=== PATIENT | female | born 1985 | race Caucasian/White ===

== ENCOUNTER 2016-08-31 06:46 | Inpatient (IN) | payer OTHER ==
[2016-08-31] MEDS ORDERED: CARBOPROST TROMETHAMINE 250 MCG/ML 1 ML AMP IM PRN (07:26)
[2016-08-31] MEDS ORDERED: METHYLERGONOVINE 0.2 MG/ML 1 ML AMP IM PRN (07:26)
[2016-08-31] MEDS ORDERED: OXYTOCIN 10 UNIT/ML 1 ML VIAL IM PRN (07:26)
[2016-08-31] MEDS ORDERED: LIDOCAINE 1% (PF) 10 MG/ML (30 ML SDV) SQ PRN (07:26)
[2016-08-31] MEDS ORDERED: TERBUTALINE 1 MG/ML VIAL SQ PRN (07:26)
[2016-08-31] MEDS: LACTATED RINGERS 1,000 ML IV SCH ×5 (08:05→23:14)
[2016-08-31] MEDS ORDERED: fentaNYL (PF) 50 MCG/ML 5 ML AMP ONE (08:35)
[2016-08-31] MEDS ORDERED: BUPIVACAINE (PF) 0.25% 30 ML VIAL ONE (08:35)
[2016-08-31] MEDS ORDERED: SODIUM CHLORIDE 0.9% 100 ML BAG ONE (08:35)
[2016-08-31 08:42] LABS: Anisocytosis Moderate; Basophils % (A) 0 %; CH 26.1; Eosinophils # (A) 0.1 k/uL (0-0.7); Eosinophils % (A) 1 %; HDW 3.15; Hypochromasia Slight; Luc # (Auto) 0.26; Luc % (Auto) 3; Lymphocytes # (A) 1.6 k/uL (1.0-4.8); Lymphocytes % (A) 16 %; MCH 27.3 pg (25.0-35.0); MCHC 33.4 g/dL (31.0-37.0); MCV 81.8 fL (80.0-100.0); Mean Platelet Volume 8.7; Microcytosis Moderate; Monocytes # (A) 0.5 k/uL (0-1.0); Monocytes % (A) 5 %; Neutrophils # (A) 7.4 k/uL (1.3-7.7); Neutrophils % (A) 75 %; RBC 4.77 m/uL (3.80-5.40); RDW 22.5 % (11.5-15.5); WBC 9.9 k/uL (3.8-10.6); WBC (Perox) 10.37
[2016-08-31] MEDS ORDERED: ePHEDrine 50 MG/ML 1 ML AMP ONE (09:18)
[2016-08-31] MEDS ORDERED: MORPHINE SULFATE (PF) 0.3 MG/0.3 ML SYR ONE (09:18)
[2016-08-31] MEDS ORDERED: MIDAZOLAM 2 MG/2 ML VIAL ONE (09:18)
[2016-08-31] MEDS ORDERED: NALBUPHINE 10 MG/ML AMPUL ONE (09:18)
[2016-08-31] MEDS ORDERED: ONDANSETRON 4 MG/2 ML VIAL ONE (09:18)
[2016-08-31] MEDS ORDERED: fentaNYL (PF) 50 MCG/ML 2 ML AMP ONE (09:18)
[2016-08-31] MEDS ORDERED: PROPOFOL 10 MG/ML 20 ML VIAL IV ONE (09:18)
[2016-08-31] MEDS ORDERED: KETOROLAC 30 MG/ML 1 ML VIAL ONE (09:18)
[2016-08-31] MEDS ORDERED: SUCCINYLCHOLINE CHLORIDE 100 MG/5 ML SYR IV ONE (09:18)
--- NOTE | 2016-08-31 10:10 | P.OP ---
Date of Procedure: 08/31/16 Preoperative Diagnosis: Intrauterine at 40-1/7 days nonreassuring heart tones, Postoperative Diagnosis: Same Procedure(s) Performed: Primary low transverse section Implants: Anesthesia: LEIDAA Surgeon: Yelena Thompson Sodium Chlorite Operator #1: Ravinder Clancy Estimated Blood Loss (ml): 350 IV fluids (ml): 800 Urine output (ml): 50 Condition: stable Disposition: PACU Indications for Procedure: Nonreassuring heart tones Operative Findings: Normal uterus tubes and ovaries were appreciated Description of Procedure: This is a 30-year-old 1 para 0 that presented to labor and delivery with complaints of contractions and bloody show initial exam she was 4 cm dilated epidural was requested. She was then comfortable with epidural I entered the labor suite heart tones were reassuring in nature spontaneous D cell down to the 60s was noted scalp electrode was placed without difficulty. heart tones remained down therefore the decision was made to take for a primary low transverse section secondary to nonreassuring heart tones. The patient was taken to the operating room and general anesthesia was obtained without difficulty by the anesthesia department she was then prepped and draped in the normal sterile fashion in the dorsal supine position. A Pfannenstiel skin incision was made after a Wright catheter was placed without difficulty, and carried through the underlying layer of fascia. The fascia was then incised in the midline and extended laterally bluntly, the superior aspect of the fascial incision was grasped gayle clamps, elevated and underlying rectus muscles dissected off sharply. The inferior aspect of the fascial incision was then grasped with Gayle clamps, elevated and the rectus muscles dissected off sharply once again. The peritoneum was identified and entered bluntly. The bladder blade was inserted and a hysterotomy incision was made and the was delivered atraumatically. She was then handed off to awaiting pediatricians once the cord was doubly clamped and cut. A section of cord was then sent for cord gases. The hysterotomy incision was then inspected and closed with 0 Vicryl in a running locked fashion, hemostasis was noted. the pelvis was then suction irrigated. The Uterus Was Then Delivered Back into the Abdomen and the Hysterotomy Was Inspected Once Again. Bleeding Was Noted on the Left-Hand Side of the Uterine Incision a Fkyete-Uo-Fssfn Suture of 0 Vicryl Was Used To Obtain Hemostasis. The Gutters Were Then Cleared of All Clots and Debris. Inspection of the Hysterotomy Site Revealed Hemostasis Once Again. The Fascia Was Then Closed with 0 Vicryl in a Running Fashion from One Lateral Edge to the other Lateral Edge. The Subcutaneous Tissue Was Then Irrigated Hemostasis Was Noted and the Skin Was Closed with 4-0 Vicryl in a Subcuticular Fashion. All Counts Are Correct 2 Patient Tolerated Procedure Well and Was Taken to the Recovery Room in Stable Condition.
[2016-08-31] MEDS ORDERED: diphenhydrAMINE 25 MG CAP PO PRN (10:13)
[2016-08-31] MEDS ORDERED: ONDANSETRON 4 MG/2 ML VIAL IVP PRN (10:13)
[2016-08-31] MEDS ORDERED: NALOXONE 0.4 MG/ML 1 ML VIAL IV PRN (10:13)
[2016-08-31] MEDS ORDERED: ZOLPIDEM 5 MG TAB PO PRN (10:13)
[2016-08-31] MEDS ORDERED: METOCLOPRAMIDE 5 MG/ML 2 ML VIAL IVP PRN (10:13)
[2016-08-31] MEDS ORDERED: diphenhydrAMINE 50 MG CAP PO PRN (10:13)
[2016-08-31] MEDS ORDERED: diphenhydrAMINE 50 MG/ML 1 ML VIAL IVP PRN ×2 (10:13)
[2016-08-31] MEDS ORDERED: ACETAMINOPHEN TAB 325 MG TAB PO PRN (10:13)
[2016-08-31] MEDS ORDERED: ACETAMINOPHEN IV (For NPO) 1,000 MG in EMPTY BAG 1 BAG IVPB ONE (10:13)
--- NOTE | 2016-08-31 10:13 | P.HPOB ---
History of Present Illness H&P Date: 08/31/16 Chief Complaint: contractions, labor this is a 30yo that presents to labor and delivery with c/o ctx since early this am that woke her from sleep. seh notes contractions q 2-3 mins with some bloody show. she denies any LOF notes good FM. Initial vitals on this patient were stable she was afebrile heart tones were 120s and reactive contractions were noted every 3 minutes approximately. She was 4 cm 80% dilated at a -2 station on admission Past Medical History Past Medical History: No Reported History History of Any Multi-Drug Resistant Organisms: None Reported Additional Past Surgical History / Comment(s): [place] teeth removal Past Anesthesia/Blood Transfusion Reactions: No Reported Reaction Past Psychological History: No Psychological Hx Reported Smoking Status: Never smoker Past Alcohol Use History: None Reported Past Drug Use History: None Reported - Past Family History Mother Family Medical History: Hypertension Medications and Allergies Home Medications Medication Instructions Recorded Confirmed Type Iron 1 tab PO DAILY 08/31/16 08/31/16 History Pnv,Calcium 72/Iron/Folic Acid 1 tab PO DAILY 08/31/16 08/31/16 History [ Plus Tablet] Allergies Allergy/AdvReac Type Severity Reaction Status Date / Time No Known Allergies Allergy Verified 08/31/16 07:04 Exam Osteopathic Statement: *. No significant issues noted on an osteopathic structural exam other than those noted in the History and Physical/Consult. - Vital Signs Vital signs: Intake and Output 08/30/16 08/31/16 08/31/16 22:59 06:59 14:59 Intake Total 1000 Balance 1000 Intake: IV 1000 Lactated Ringers 1,000 ml 1000 @ 125 mls/hr IV .Q8H [facility] Rx#:[id number] Other: Weight 67.132 kg Patient Weight 09/01/16 06:59 Weight 67.132 kg - OBG Physical Exam Abdomen: Gravid and appropriate for gestational age Results Result Diagrams: 08/31/16 08:05 Abnormal Lab Results - Last 24 Hours (Table) 08/31/16 Range/Units 08:05 RDW 22.5 H (11.5-15.5) % Assessment and Plan (1) Active labor at term Status: Acute Plan: She was admitted to labor and delivery with expectant management anticipate spontaneous vaginal delivery
[2016-08-31] MEDS ORDERED: OXYTOCIN 20 UNITS/1000 ML NS 1,000 ML IV SCH (10:15)
[2016-08-31] MEDS: KETOROLAC 30 MG/ML 1 ML VIAL IVP SCH (19:55)
[2016-08-31] MEDS: SENNOSIDES-DOCUSATE SODIUM 1 EACH TAB PO SCH (19:56)
[2016-08-31] MEDS: ceFAZolin 2 GM in SODIUM CHLORIDE 0.9% 100 ML IVPB SCH (22:52)
[2016-09-01] MEDS: KETOROLAC 30 MG/ML 1 ML VIAL IVP SCH ×2 (02:00→09:02)
[2016-09-01 05:57] LABS: Anisocytosis Moderate; Basophils % (A) 0 %; CH 26.1; CHCM 31.4; Eosinophils # (A) 0.1 k/uL (0-0.7); Eosinophils % (A) 0 %; HDW 2.88; Hypochromasia Slight; Luc # (Auto) 0.21; Luc % (Auto) 1; Lymphocytes # (A) 0.8 k/uL (1.0-4.8); Lymphocytes % (A) 6 %; MCH 26.5 pg (25.0-35.0); MCHC 31.8 g/dL (31.0-37.0); MCV 83.2 fL (80.0-100.0); Mean Platelet Volume 8.8; Microcytosis Slight; Monocytes # (A) 0.4 k/uL (0-1.0); Monocytes % (A) 3 %; Neutrophils # (A) 12.9 k/uL (1.3-7.7); Neutrophils % (A) 89 %; RBC 3.73 m/uL (3.80-5.40); RDW 22.7 % (11.5-15.5); WBC 14.5 k/uL (3.8-10.6); WBC (Perox) 14.95
[2016-09-01 06:07] LABS: HGB 9.9 gm/dL (11.4-16.0)
[2016-09-01] MEDS: ceFAZolin 2 GM in SODIUM CHLORIDE 0.9% 100 ML IVPB SCH (06:50)
[2016-09-01] MEDS: SENNOSIDES-DOCUSATE SODIUM 1 EACH TAB PO SCH ×2 (08:00→19:20)
--- NOTE | 2016-09-01 08:12 | P.PNOBGPC ---
Subjective - Subjective Principal diagnosis: Post operative day #1 from primary low transverse section Patient reports: Reports appetite normal, Reports voiding normally, Reports ambulating normally : doing well Objective - Vital Signs Latest vital signs: Vital Signs Temp Pulse Resp BP Pulse Ox 09/01/16 04:00 98.3 F 110 H 16 110/68 97 08/31/16 23:09 98.2 F 110 H 16 125/77 99 08/31/16 20:00 97.8 F 97 16 125/80 99 08/31/16 15:56 98.3 F 105 H 16 117/71 08/31/16 12:05 97.6 F 111 H 16 121/77 08/31/16 11:35 107 H 18 117/74 08/31/16 11:05 100 20 130/83 08/31/16 10:50 108 H 20 127/85 08/31/16 10:35 115 H 20 119/76 08/31/16 10:20 122 H 20 132/75 08/31/16 10:05 96.9 F L 110 H 20 134/68 Intake and Output 08/31/16 09/01/16 09/01/16 22:59 06:59 14:59 Intake Total 300 Output Total 900 Balance -900 300 Intake: IV 300 Lactated Ringers 1,000 ml 300 @ 125 mls/hr IV .Q8H [facility] Rx#:[id number] Output: Urine 900 Other: # Voids 1 - Exam Lungs: bilateral: normal Abdomen: Present: normal appearance Incision: Present: normal, dry Uterus: Present: firm - Labs Labs: Abnormal Lab Results - Last 24 Hours (Table) 08/31/16 09/01/16 Range/Units 08:05 05:42 WBC 14.5 H (3.8-10.6) k/uL RBC 3.73 L (3.80-5.40) m/uL Hgb 9.9 L D (11.4-16.0) gm/dL Hct 31.0 L (34.0-46.0) % RDW 22.5 H 22.7 H (11.5-15.5) % Neutrophils # 12.9 H (1.3-7.7) k/uL Lymphocytes # 0.8 L (1.0-4.8) k/uL Assessment and Plan (1) Active labor at term Narrative/Plan: Postop day 1 from a primary low transverse section secondary to nonreassuring heart tones Doing well Encourage ambulation today Current Visit: Yes Status: Acute Code(s): [id number] - SNOMED Code(s): 07769827
[2016-09-01] MEDS: Acetaminophen-Codeine 300-30mg TAB PO PRN ×2 (15:38→22:43)
[2016-09-01] MEDS: IBUPROFEN 600 MG TAB PO PRN (19:21)
[2016-09-02] MEDS: IBUPROFEN 600 MG TAB PO PRN ×3 (02:01→21:41)
[2016-09-02] MEDS: LACTATED RINGERS 1,000 ML IV SCH ×3 (06:13→06:14)
--- NOTE | 2016-09-02 08:35 | P.PNOBGPC ---
Subjective - Subjective Patient reports: Reports appetite normal, Reports voiding normally, Reports pain well controlled, Reports ambulating normally : doing well, in NICU (Currently receiving prophylactic antibiotics pending blood cultures.) Objective - Vital Signs Latest vital signs: Vital Signs Temp Pulse Resp BP Pulse Ox 09/01/16 23:24 97.6 F 108 H 16 130/79 99 09/01/16 15:47 98.4 F 112 H 18 128/63 97 - Exam Extremities: Present: normal, edema (Trace bilateral pedal edema) Abdomen: Present: normal appearance, soft. Absent: distention, tenderness Incision: Present: normal, dry, intact Uterus: Present: normal, firm (Urine fundus as tonic and appropriately tender just below the umbilicus.) Assessment and Plan (1) S/P section Narrative/Plan: Continue routine postoperative care. It is possible that the infant will be released to the floor this afternoon. The patient will then see ruby from the clinical practice consultant and possibly be discharged home tomorrow morning. Current Visit: Yes Status: Acute Code(s): Z98.891 - HISTORY OF UTERINE SCAR FROM PREVIOUS SURGERY SNOMED Code(s): 810041791
[2016-09-02] MEDS: Acetaminophen-Codeine 300-30mg TAB PO PRN ×3 (08:42→23:53)
[2016-09-02] MEDS: SENNOSIDES-DOCUSATE SODIUM 1 EACH TAB PO SCH ×2 (08:43→19:21)
[2016-09-03] MEDS: IBUPROFEN 600 MG TAB PO PRN (08:59)
[2016-09-03 09:25] VITALS: BP 117/73; PULSE 98; RESP 16; TEMP 98
--- NOTE | 2016-09-03 09:43 | P.DS ---
Providers Date of admission: 08/31/16 07:20 Expected date of discharge: 09/03/16 Attending physician: Domo Singh Primary care physician: Stated None - Discharge Diagnosis(es) (1) S/P section Current Visit: Yes Status: Acute Hospital Course: The patient is a 30-year-old 1 para 0 admitted at 40 and one sevenths weeks by good dating parameters. She is admitted in early labor with all signs reassuring upon admission. Her has been uncomplicated to this point though her cervix has been unfavorable. On admission, her cervix was found to be 4-5 cm dilated. She had an epidural catheter placed for analgesia and, shortly thereafter had a significant deceleration of the heart rate into the 40s to 60s which remained there for several minutes. As result, she was taken to the operating room for an urgent section. She was delivered by section of a viable 7 lbs. 2 oz. baby girl with Apgars of 6 at 1 minute, 8 at 5 minutes, and 9 at 10 minutes. The infant was taken to the special care nursery for prophylactic antibiotics for 48 hours after which time cultures were noted to be negative. The infant was then released to the room with her parents. The patient's postoperative course was unremarkable vital signs remaining stable and her temperature was afebrile throughout. She was deemed stable for discharge by post operative day #3 and was discharged home to follow-up in the office in 2 weeks for an incision check and 6 weeks routinely. Discharge instructions included calling for any significantly increased fever or abdominal pain, significantly increased bleeding or foul-smelling lochia, perineal complaints, breast complaints, incisional complaints, or anything else that concerned her. She was additionally instructed to have nothing in the vagina for at least 6 weeks time to include intercourse and to abstain from any heavy lifting over the same period of time. She is less instructed to do no driving until off of all pain medications or 2 weeks' time, whichever came first. She understood her instructions and agrees to follow up as noted above. Discharge medications included a prescription for Tylenol 3, 1-2 by mouth every 6 hours when necessary pain, #30 dispensed with no refills. She was otherwise to use [id number] analgesic pain medications as well and to continue vitamins as she has opted to breast-feed. Maternal blood type is Rh+ and rubella status is immune. Procedures: #1. Epidural analgesia #2. Urgent primary low transverse section Patient Condition at Discharge: Stable Plan - Discharge Summary New Discharge Prescriptions: No Action Pnv,Calcium 72/Iron/Folic Acid [ Plus Tablet] 1 tab PO DAILY Iron 1 tab PO DAILY Discharge Medication List Iron 1 tab PO DAILY 08/31/16 [History] Pnv,Calcium 72/Iron/Folic Acid [ Plus Tablet] 1 tab PO DAILY 08/31/16 [ History] Follow up Appointment(s)/Referral(s): Domo Singh MD [STAFF PHYSICIAN] - 2 Weeks Discharge Disposition: HOME SELF-CARE
== END 2016-09-03 13:30 | disposition home or self-care (01) | DRG 766 ==
LOC: FBPOP 06:46 → 4FBP 07:20
PROVIDERS: ADMIT Obstetrics & Gynecology Obstetrics; ATTEND Obstetrics & Gynecology
PROC: 00HU33Z Insertion of Infusion Device into Spinal Canal, Percutaneous Approach (ICD-10-PCS; 2016-08-31)
PROC: 3E0R3CZ (ICD-10-PCS; 2016-08-31)
PROC: 10D00Z1 Extraction of Products of Conception, Low, Open Approach (ICD-10-PCS; principal; 2016-08-31 09:26)
DX: O76 Abnormality in fetal heart rate and rhythm complicating labor and delivery (principal); Z37.0 Single live birth; Z3A.40 40 weeks gestation of pregnancy; Z79.899 Other long term (current) drug therapy
CPT/HCPCS: 59025; 85025; 88307; 99213

== ENCOUNTER → 2020-09-18 | Outpatient (CLI) | payer OTHER ==
--- NOTE | 2020-09-19 14:37 | USB ---
Reason for exam: clinical finding. Indicated problem(s): pain in the right breast. Physical Findings: Nurse Summary: prominent nodularities (nurse dw). US Breast RT Right complete breast ultrasound includes all four quadrants, the retroareolar region and axilla. Finding demonstrates a 0.3 x 0.2 x 0.2cm oval, cystic lesion at 1 o'clock and a 1.4 x 1.0 x 0.8cm lymph node at the axilla. These results were verbally communicated with the patient and result sheet given to the patient on 09/18/20. ASSESSMENT: Benign, BI-RAD 2 RECOMMENDATION: Routine screening mammogram of both breasts at age 36. Manage on a clinical basis with regard to pain, nipple discharge.
== END | disposition home or self-care (01) ==
LOC: RADUSWWP 14:54
PROVIDERS: ATTEND Obstetrics & Gynecology Obstetrics
DX: N64.4 Mastodynia (principal)

== ENCOUNTER → 2023-07-29 | Outpatient (CLI) | payer BC ==
--- NOTE | 2023-07-30 11:09 | USB ---
Patient History: Menarche at age 12. First Full-Term at age 30. Premenopausal. Risk Values: Liz 5 year model risk: 0.4%. NCI Lifetime model risk: 12.3%. Technique: Method: Targeted. Findings: The axilla of the right breast was scanned. No solid or cystic masses are identified. Normal lymph node is present. Overall Assessment: Benign, BI-RAD 2 Management: Clinical Management of the right breast. A clinical breast exam by your physician is recommended on an annual basis and results should be correlated with mammographic findings. This exam should not preclude additional follow-up of suspicious palpable abnormalities. Results were given to the patient verbally at the time of exam. Electronically signed and approved by: Ken Elizabeth D.O. Radiologis
--- NOTE | 2023-08-01 12:48 | MM ---
Reason for Exam: Screening (asymptomatic). Baseline mammogram. Patient History: Menarche at age 12. First Full-Term at age 30. Premenopausal. Last menstrual period: 07/29/2023 Risk Values: Liz 5 year model risk: 0.4%. NCI Lifetime model risk: 12.3%. Prior Study Comparison: Patient's first Mammogram. Tissue Density: The breasts are extremely dense, which lowers the sensitivity of mammography. Findings: Analyzed By CAD. Right breast: There is no suspicious group of microcalcifications or new suspicious mass. Left breast: There is no suspicious group of microcalcifications or new suspicious mass. Overall Assessment: Negative, BI-RAD 1 Management: Screening Mammogram of both breasts in [address] [facility] will attempt to contact patient to return for supplemental views and ultrasound if indicated. Patient should continue monthly self-breast exams. A clinical breast exam by your physician is recommended on an annual basis. This exam should not preclude additional follow-up of suspicious palpable abnormalities. Note on Liz scores and lifetime risk: 1. A Liz score greater than 3% is considered moderate risk. If this is the case, consider specialist referral to assess eligibility for a risk reducing agent. 2. If overall lifetime risk for the development of breast cancer is 20% or higher, the patient may qualify for future screening with alternating mammogram and breast MRI. Electronically signed and approved by: Andi Peterson DO
== END | disposition home or self-care (01) ==
LOC: RADMAMWWP 16:11
PROVIDERS: ATTEND Family Medicine
DX: Z12.31 Encounter for screening mammogram for malignant neoplasm of breast (principal); R59.0 Localized enlarged lymph nodes
CPT/HCPCS: 77063; 77067

== ENCOUNTER 2023-12-16 07:12 | Emergency (ER) | payer BC ==
[2023-12-16 07:19] VITALS: RESP 18
--- NOTE | 2023-12-16 07:34 | ED ---
Extremity Problem HPI - General Chief complaint: Extremity Injury, Upper Stated complaint: R hand pain Time Seen by Provider: 12/16/23 07:20 Source: patient, RN notes reviewed Mode of arrival: ambulatory Limitations: no limitations - History of Present Illness Initial comments: This is a 38-year-old female who presents to the emergency department for hand pain. States that she was getting dressed this morning and felt a sting on her right hand. When she looked at the hand she noticed bruising and swelling over this area. She did not see any bugs or insects on her hand. She also does not see any retained stingers. Denies pain or itching spreading elsewhere aside from the hand. Denies any chest pain or shortness of breath. MD Complaint: extremity pain, extremity swelling - Related Data Home Medications Medication Instructions Recorded Confirmed Iron 1 tab PO DAILY 08/31/16 08/31/16 Pnv,Calcium 72/Iron/Folic Acid 1 tab PO DAILY 08/31/16 08/31/16 [ Plus Tablet] Previous Rx's Medication Instructions Recorded predniSONE 50 mg PO DAILY 5 Days #5 tablet 04/11/22 Allergies Allergy/AdvReac Type Severity Reaction Status Date / Time No Known Allergies Allergy Verified 12/16/23 07:15 Review of Systems ROS Statement: Those systems with pertinent positive or pertinent negative responses have been documented in the HPI. ROS Other: All systems not noted in ROS Statement are negative. Past Medical History Past Medical History: No Reported History History of Any Multi-Drug Resistant Organisms: None Reported Past Surgical History: Section Additional Past Surgical History / Comment(s): [place] teeth removal Past Anesthesia/Blood Transfusion Reactions: No Reported Reaction Past Psychological History: No Psychological Hx Reported Smoking Status: Never smoker Past Alcohol Use History: None Reported Past Drug Use History: None Reported - Past Family History Mother Family Medical History: Hypertension General Exam Limitations: no limitations General appearance: alert, in no apparent distress Head exam: Present: atraumatic, normocephalic, normal inspection Respiratory exam: Present: normal lung sounds bilaterally. Absent: respiratory distress, wheezes, rales, rhonchi, stridor Cardiovascular Exam: Present: regular rate, normal rhythm, normal heart sounds. Absent: systolic murmur, diastolic murmur, rubs, gallop, clicks Extremities exam: Present: other (Localized area of bruising over the dorsal aspect of the right hand. No obvious stingers or puncture chinchilla.) Neurological exam: Present: alert, oriented X3, CN II-XII intact Psychiatric exam: Present: normal affect, normal mood Course Vital Signs 12/16/23 07:15 Temperature 97.8 F Pulse Rate 107 H Respiratory 18 Rate Blood Pressure 139/86 O2 Sat by Pulse 97 Oximetry Medical Decision Making - Medical Decision Making This is a 38 year old female who presents to the emergency department for hand pain/bruising. Was pt. sent in by a medical professional or institution? @ -No Did you speak to anyone other than the patient for history? @ -No Did you review nursing and triage notes? @ -Yes, and I agree, it is accurate with regards to the patient's symptoms. Were old charts reviewed? @ -No Differential Diagnosis? @ -Differential Musculoskeletal Muscular strain, contusion, ligament sprain, fracture, arthritis, septic arthritis, bursitis, cellulitis, muscle spasm, nerve compression, DVT, arterial occlusion, herpes zoster, electrolyte abnormality, tumor.... This is not meant to be in all inclusive list EKG interpreted by me (3pts min.)? @ -Not obtained X-rays interpreted by me (1pt min.)? @ -Not obtained CT interpreted by me (1pt min.)? @ -Not obtained U/S interpreted by me (1pt. min.)? @ -Not obtained What testing was considered but not performed? (CT, X-rays, U/S, labs)? Why? @ -None What meds were considered but not given? Why? @ -None Did you discuss the management of the patient with other professionals? @ -No Did you reconcile home meds? @ -No Was smoking cessation discussed for >3mins.? @ -No Was critical care preformed (if so, how long)? @ -No Were there social determinants of health that impacted care today? How? (Homelessness, low income, unemployed, alcoholism, drug addiction, transportation, low edu. Level, literacy, decrease access to med. care, usp, rehab)? @ -No Was there de-escalation of care discussed even if they declined? (Discuss DNR or withdrawal of care, Hospice)? @ -No What co-morbidities impacted this encounter? (DM, HTN, Smoking, COPD, CAD, Cancer, CVA, Hep., AIDS, mental health diagnosis, sleep apnea, morbid obesity)? @ -None Was patient admitted / discharged? @ -Discharged. On exam her hand had a small area of bruising, tenderness, and swelling. No obvious puncture wounds or stingers were visualized. Triamcinolone cream provided along with Solu-Medrol and Benadryl. She was sent home with the triamcinolone cream to continue using a few times each day. Also advised continuing with [id number] antihistamines, ibuprofen, and Tylenol. Patient discharged home in stable condition. Case discussed with ED attending Dr. Mckeon. Return precautions reviewed in depth, the patient is instructed to return to the emergency department with any new, worsening, or concerning symptoms. Patient verbalized understanding. Undiagnosed new problem with uncertain prognosis? @ -None Drug Therapy requiring intensive monitoring for toxicity (Heparin, Nitro, Insulin, Cardizem)? @ -None Were any procedures done? @ -None Diagnosis/symptom? @ -Right hand pain, insect sting Acute, or Chronic, or Acute on Chronic? @ -Acute Uncomplicated (without systemic symptoms) or Complicated (systemic symptoms)? @ -Uncomplicated Side effects of treatment? @ -None Exacerbation, Progression, or Severe Exacerbation] @ -Not applicable Poses a threat to life or bodily function? @ -No Disposition Clinical Impression: Hand pain, Insect sting Disposition: HOME SELF-CARE Instructions (If sedation given, give patient instructions): Insect Bite or Sting (ED) Additional Instructions: Return to the emergency department with any new, worsening, or concerning symptoms. Alternate with ibuprofen and Tylenol as needed for pain relief. You can also take Benadryl or another antihistamine to help with any swelling. Continue to apply the triamcinolone cream provided 3-4 times daily. Follow up with your primary care provider in 1-2 days. Is patient prescribed a controlled substance at d/c from ED?: No Referrals: Jose Weinstein MD [Primary Care Provider] - 1-2 days Time of Disposition: 07:35
[2023-12-16] MEDS: methylPREDNISolone SOD SUCCI 125 MG/2 ML VIAL IM ONE (07:51)
[2023-12-16] MEDS: KETOROLAC 15 MG/ML 1 ML VIAL IM STA (07:52)
[2023-12-16] MEDS: TRIAMCINOLONE 0.1% CREAM 80 GM TUBE TOPICAL STA (07:58)
[2023-12-16] MEDS: diphenhydrAMINE 50 MG CAP PO STA (07:58)
[2023-12-16 08:03] VITALS: BP 131/79; PULSE 100; TEMP 98
== END 2023-12-16 08:01 | disposition home or self-care (01) ==
LOC: EC 07:12
DX: M79.641 Pain in right hand (principal); W57.XXXA Bitten or stung by nonvenomous insect and other nonvenomous arthropods, initial encounter
CPT/HCPCS: 99283; 96372 ×2; J1885; J2919